=== PATIENT | female | born 2000 | race Caucasian/White ===

== ENCOUNTER 2024-10-09 08:01 | Emergency (ER) | payer MEDICAID ==
[~2024-10-09] VITALS: Ht 162.6 cm; Wt 69.0 kg
[2024-10-09 08:05] VITALS: BP 117/77; PULSE 74; RESP 16; TEMP 36.4; O2SAT 100
[2024-10-09] MEDS ORDERED: METR-167 MT (09:04)
[2024-10-09] MEDS ORDERED: DOXY100C5 MT (09:04)
[2024-10-09] MEDS ORDERED: BO1 TP (09:05)
[2024-10-09] MEDS: LIDOCAINE HCL 1% 20ML VIAL INFIL ONE (09:19)
[2024-10-09] MEDS: CEFTRIAXONE SODIUM 500MG VIAL IM ONE (09:19)
== END 2024-10-09 09:29 | disposition home or self-care (01) ==
LOC: ER 08:15
DX: N98.9 Complication associated with artificial fertilization, unspecified (principal); Z11.3 Encounter for screening for infections with a predominantly sexual mode of transmission; F20.9 Schizophrenia, unspecified; F31.9 Bipolar disorder, unspecified
CPT/HCPCS: 99283; 81025; 96372; J0696; J3490

== ENCOUNTER 2025-05-05 22:06 | Emergency (ER) | payer MEDICAID ==
[~2025-05-05 22:06] MED LIST: BO1 TP; DOXY100C5 MT; METR-167 MT
[2025-05-05 22:16] VITALS: PULSE 60; RESP 18; O2SAT 99
== END 2025-05-05 23:08 | disposition left against medical advice (07) ==
LOC: ER 22:06
DX: T65.91XA Toxic effect of unspecified substance, accidental (unintentional), initial encounter (principal); Z53.21 Procedure and treatment not carried out due to patient leaving prior to being seen by health care provider; X58.XXXA Exposure to other specified factors, initial encounter; Y93.89 Activity, other specified; Y92.89 Other specified places as the place of occurrence of the external cause; Y99.8 Other external cause status
CPT/HCPCS: 99281

== ENCOUNTER 2025-06-12 22:22 | Emergency (ER) | payer MEDICAID, OTHER ==
[~2025-06-12] VITALS: Ht 175.3 cm; Wt 100.7 kg
[2025-06-12 22:29] VITALS: TEMP 38.2; O2SAT 99
[2025-06-13 01:19] LABS: BASOPHILS % 0.7 % (0.0-2.0); EOSINOPHILS % 4.0 % (0.0-5.0); HEMATOCRIT. 39.6 % (36.0-48.0); HEMOGLOBIN. 12.7 g/dL (12.0-16.0); LYMPHOCYTES % 27.1 % (20.0-50.0); MEAN PLATELET VOLUME 8.0 fl (7.4-10.4); MONOCYTES % 5.5 % (2.0-8.0); NEUTROPHILS % 62.7 % (40.0-76.0); PLATELET 351 x1000/uL (130-400); RED BLOOD CELL COUNT 4.28 mill/uL (4.2-5.4); RED CELL DISTRIBUTION WIDTH 15.4 % (11.6-14.6)
[2025-06-13 01:35] LABS: CREATININE 0.9 mg/dL (0.6-1.0)
[2025-06-13 01:36] LABS: ETHANOL BLOOD < 10 mg/dL (<10); UREA NITROGEN BLOOD 11 mg/dL (9-23)
[2025-06-13 03:50] LABS: CLARITY URINE CLOUDY (CLEAR); COLOR URINE YELLOW (YELLOW); GLUCOSE URINE NEGATIVE (NEGATIVE); KETONES URINE NEGATIVE (NEGATIVE); LEUKOCYTE ESTERASE URINE 2+ (NEGATIVE); NITRITE URINE NEGATIVE (NEGATIVE); OCCULT BLOOD URINE TRACE (NEGATIVE); PH URINE 5.5 (4.5-8.0); PROTEIN URINE TRACE (NEGATIVE); SPECIFIC GRAVITY URINE 1.027 (1.005-1.030); UROBILINOGEN URINE 0.2 E.U./dL (0.2-1.0)
[2025-06-13 04:10] LABS: *AMPHETAMINES SCREEN URINE NEGATIVE (NEGATIVE); *BARBITURATES SCREEN URINE NEGATIVE (NEGATIVE); *BENZODIAZEPINES SCREEN URINE NEGATIVE (NEGATIVE)
[2025-06-13 04:11] LABS: *COCAINE SCREEN URINE NEGATIVE (NEGATIVE); CANNABINOID URINE SCREEN NEGATIVE (NEGATIVE); ECSTASY MDMA SCREEN URINE CONF.TEST INDICATED (NEGATIVE); METHADONE URINE SCREEN NEGATIVE (NEGATIVE); OPIATES URINE SCREEN NEGATIVE (NEGATIVE); PHENCYCLIDINE URINE SCREEN NEGATIVE (NEGATIVE)
[2025-06-13 05:51] LABS: SQUAMOUS EPITHELIAL CELL URINE 1+ /lpf (RARE/1+)
[2025-06-13 05:52] LABS: WBC URINE 25-50 /hpf (0-2)
[2025-06-13 05:54] LABS: BACTERIA URINE 1+
[2025-06-13] MEDS: CEPHALEXIN 250MG CAPSULE PO ONE (06:03)
[2025-06-13 10:30] VITALS: BP 107/62; PULSE 60; RESP 13; O2SAT 100
== END 2025-06-13 10:46 | disposition home or self-care (01) ==
LOC: ER 22:22
DX: R45.851 Suicidal ideations (principal); F41.9 Anxiety disorder, unspecified; F32.A Depression, unspecified; Z20.822 Contact with and (suspected) exposure to COVID-19; Z79.899 Other long term (current) drug therapy
CPT/HCPCS: 36415; 80048; 80305; 80307; 80320; 80329; 81003; 85025; 87426; 99283; G0480